=== PATIENT | female | born 1995 ===

== ENCOUNTER 2023-08-05 07:54 | Outpatient (CLI) | payer MEDICAID ==
--- NOTE | 2023-08-05 12:08 | Ultrasound Report ---
PROCEDURE: OB Anatomy Scan INDICATIONS: SUPERVISION OF OUTSIDE/PRIOR DATING DATA: Last menstrual period (LMP): 02/25/2023. LMP-based estimated date of delivery (EARLINE): 12/06/2023. First dating scan (date and location): 08/05/2023. Estimated date of delivery (EARLINE) from first dating scan: 12/14/2023. The below data below was generated using the ultrasound EARLINE of 12/14/2023 TECHNIQUE: Real-time scanning was performed of the fetus, with image documentation and biometric measurements. Endovaginal scanning: Not performed. COMPARISON: None. FINDINGS: General: A single living intrauterine gestation is present. Presentation: Breech Placenta: Placental position is posterior, without previa. Amniotic fluid index: 10.1 cm, within normal limits for gestational age. Largest pocket 3.8 cm. heart rate: 141 beats per minute. Maternal cervical canal: 3.2 cm long; normal length is 2.5 cm or more. Closed. biometrics: Biparietal diameter: 4.9 cm, 21 weeks 0 days Head circumference: 18.8 cm, 21 weeks 1 day Abdominal circumference: 16.6 cm, 21 weeks 5 days Femur length: 3.5 cm, 21 weeks 1 day Estimated gestational age from initial scan: Not applicable Composite gestational age from present scan: 21 weeks 2 days Estimated weight and percentile: 420 grams, 2nd percentile. Measurement variability in biometric dating: +/- 10 days from 12-20 weeks gestation, +/- 2 weeks from 20-30 weeks gestation, +/- 3 weeks at 30 weeks gestation or later. Anatomic survey: Neuro: Ventricles are normal at less than 10 mm. Cisterna magna is normal at 3-11 mm. Cerebellum i s normal in size and morphology. Nuchal skin fold: Normal at less than 6 mm between 14 and 20 weeks gestational age. Face: Nose and lips, facial profile are normal. Spine: No evidence for spina bifida. Heart: 4-chambered heart is present, with normal ventricular outflow tracts. Diaphragm: Diaphragm is intact. Stomach: Left-sided stomach is present. Kidneys: No hydronephrosis. Normal is less than 5 mm in 2nd trimester, less than 7 mm in 3rd trimester. Cord: 3 vessel cord has orthotopic insertion. Bladder: Normal in size. Extremities: All 4 extremities are visualized. Left ovarian cyst measuring 1.6 x 1.3 x 0.9 cm. IMPRESSION: 1. [place] living intrauterine at 21 weeks 2 days based on today's ultrasound. Estimated weight 420 g. Estimated weight is in the 2nd percentile. This raises the possibility of intrauterine growth r estriction. Recommend correlation with clinical dating. 2. Normal placenta and amniotic fluid. 3. Normal and complete anatomic survey. Reviewed by: José Miguel Jay MD on 08/05/2023 12:07 PM PDT Approved by: José Miguel Jay MD on 08/05/2023 12:07 PM PDT Station ID: [id number]
== END 2023-08-05 07:55 | disposition home or self-care (01) ==
LOC: DI 07:54
PROVIDERS: ATTEND Nurse Practitioner Obstetrics & Gynecology
DX: Z34.02 Encounter for supervision of normal first pregnancy, second trimester (principal); Z36.89 Encounter for other specified antenatal screening

== ENCOUNTER 2023-11-15 15:04 | Outpatient (CLI) | payer MEDICAID ==
--- NOTE | 2023-11-15 18:23 | Ultrasound Report ---
PROCEDURE: OB Follow up INDICATIONS: UTERINE SIZE-DATE DISCREPANCY OUTSIDE/PRIOR DATING DATA: Last menstrual period (LMP): 02/25/2023. LMP-based estimated date of delivery (EARLINE): 12/06/2023. First dating scan (date and location): 08/05/2023. Estimated date of delivery (EARLINE) from first dating scan: 12/14/2023. The below data below was generated using the sonographic EARLINE of 12/14/2023 TECHNIQUE: Real-time scanning was performed of the fetus, with image documentation and biometric measurements. Endovaginal scanning: Not performed. COMPARISON: 08/05/2023 FINDINGS: General: A single living intrauterine gestation is present. Presentation: Breech Placenta: Placental position is posterior/fundal, without previa. Amniotic fluid index: 16.5 cm, 65 percentile for gestational age. heart rate: 140 beats per minute. Maternal cervical canal: 3.18 cm long; normal length is 2.5 cm or more. biometrics: Biparietal diameter: 8.74 cm, 35 weeks 2 days, 40.8 percentile Head circumference: 31.7 cm, 35 weeks 4 days, 14.5 percentile Abdominal circumference: 30.7 cm, 34 weeks 4 days, 23.9 percentile Femur length: 6.5 cm, 33 weeks 5 days, 5 percentile Estimated gestational age from initial scan: 35 weeks 6 days Composite gestational age from present scan: 34 weeks 6 days Estimated weight and percentile: 2451 g, 17th percentile Measurement variability in biometric dating: +/- 10 days from 12-20 weeks gestation, +/- 2 weeks from 20-30 weeks gestation, +/- 3 weeks at 30 weeks gestation or more. Other: Not applicable. IMPRESSION: Single living intrauterine at 35 weeks 6 days, EARLINE of 12/14/2023. Estimated weight of 2451 g, 17th percentile. FEDERICO measures 16.5 cm. Reviewed by: Johnie Prater MD on 11/15/2023 6:22 PM PDT Approved by: Johnie Prater MD on 11/15/2023 6:22 PM PDT Station ID: [id number]
== END 2023-11-15 15:05 | disposition home or self-care (01) ==
LOC: DI 15:04
PROVIDERS: ATTEND Nurse Practitioner Obstetrics & Gynecology
DX: O26.843 Uterine size-date discrepancy, third trimester (principal); Z3A.34 34 weeks gestation of pregnancy

== ENCOUNTER 2023-11-26 07:31 | Observation (INO) | payer MEDICAID ==
[~2023-11-26 07:31] MED LIST: MINERAL OIL LIGHT 10 ML TOP SCH; RHO(D) IMMUNE GLOBULIN 300 MCG SYRINGE IM PRN; SODIUM CHLORIDE FLUSH 0.9% 10 ML SYRINGE IVP PRN; fentaNYL 100 MCG/2 ML VIAL IVP PRN
--- NOTE | 2023-11-26 08:06 | HISTORY & PHYSICAL EXAMINATION ---
Admit History - : 3 Parity: 0 - Other Maternal History Other Maternal History: HPI: Patient is a 28-year-old G3, P0 at 39 weeks 0 days gestation presenting today for external cephalic version for breech breech version. She feels good movement, no leaking or bleeding. No contractions. Denies symptoms of preeclampsia. All other symptoms reviewed and were negative except per HPI. PMH Depression PSH No previous surgeries OB History G3, P0 SH Denies tobacco, blood, drugs Family History Noncontributory Allergies No known drug allergies Medications vitamins Fluoxetine Physical exam: General: Alert, oriented, no acute distress Head: Normal cephalic atraumatic Eyes: PERRLA, extraocular motions intact. Respiratory: Normal rate of respiration. No accessory muscle use, normal respiratory effort. Cardiovascular: Regular rate and rhythm Abdomen: Gravid, nontender, nondistended Extremities: Normal range of motion Neuro: Oriented x3. Normal movements Psych: Appropriate mood and affect. Normal judgment and insight FHT: [ ] [place]: [ ] Plan 28-year-old G3, P0 at 39 weeks 0 days gestation here for external cephalic version 1. malpresentation -Discussed the risk, benefits, alternatives of external cephalic version. Discussed risk of heart rate changes being the most common. These are usually temporary and resolve after cessation of procedure. Discussed the risk of placental disruption, bleeding, rupture membranes, urgent section, failure of procedure. Patient did eat breakfast this morning, and why this should not affect things significantly, can increase risk of aspiration if going towards anesthesia. Does not desire spinal at this time. Accepts risk, would like to proceed. O positive blood type, no rhogam indicated. - HPI Vital Signs Temperature 98.1 F 11/26/23 07:56 Heart Rate 89 11/26/23 07:56 Respiratory Rate 16 11/26/23 07:56 Blood Pressure 120/83 H 11/26/23 07:56 Temperature 98.1 F 11/26/23 07:56 Heart Rate 89 11/26/23 07:56 Respiratory Rate 16 11/26/23 07:56 Blood Pressure 120/83 H 11/26/23 07:56 O2 Saturation If not protocol: Oxygen Flow, liters/minute Physical - Abdominal Exam Vital Signs: Temp Pulse Resp BP Pulse Ox O2 Flow Rate 98.1 F 89 16 120/83 H 11/26/23 07:56 11/26/23 07:56 11/26/23 07:56 11/26/23 07:56 Plan for Labor - Plan For Labor I expect patient to be DC'd or transferred within 96 hours.: Yes
[2023-11-26] MEDS: TERBUTALINE 1 MG/ML VIAL SUBQ PRN (09:25)
[2023-11-26] MEDS: ONDANSETRON 4 MG/2 ML VIAL IVP PRN (09:30)
--- NOTE | 2023-11-26 09:53 | PROCEDURE REPORT ---
Hospitalist Procedure Note - Procedure Note Procedure Note: Procedure date: 11/26/2023 Procedure: External cephalic version Indication: Breech presentation, 38 weeks gestation Patient consent: Patient consented to the risks of external cephalic version including the risk of heart rate changes, bleeding, placental abruption, rupture membranes, emergency section, cord prolapse, hemorrhage, stillbirth. Discussed the benefits [place] avoiding a planned section. Discussed we are not successful we will abandon procedure and plan a section. Patient agrees to this and desires to proceed. Anesthesia: Nitrous oxide Complications: None Estimated blood loss: None Postop diagnosis: Successful external cephalic version, cephalic presentation, 38 weeks gestation Procedure summary: Patient is a 20-year-old G3, P0 at 38 weeks gestation who presented for an external cephalic version for breech presentation. Time out was taken. She was taken to the triage room where spinal anesthesia was adequate. Under ultrasound guidance, the fetus was noted to be in breech presentation with head to maternal right and baby in transverse presentation. The patient was given terbutaline for uterine relaxation. Using gentle, steady pressure, the head was rotated counterclockwise as the back was lifted out of the pelvis. Intermittent ultrasound was used to confirm movement. Overall the procedure took approximately 10 minutes which included frequent pauses for maternal discomfort and initiation of nitrous oxide. Ultrasound confirmed cephalic presentation. A belly binder was placed until the effects of the terbutaline wore off. Patient was monitored with a reactive NST after the procedure, but had a prolonged decelerations shortly after the procedure, so she was kept for extended monitoring. She had a reassuring heart tracing afterwards and 8/8 BPP with FEDERICO 14.5cm. She was strongly encouraged to talk about induction of labor and has an appointment with her mine engineering manager tomorrow for a visit and an NST. I appreciate the assistance of SARAH Bro during this procedure, and the assistance during the case was instrumental to the patient's wellbeing.
[2023-11-26 12:10] LABS: BASOPHILS % (AUTO) 0.3 %; EOSINOPHILS # (AUTO) 0.1 10^3/uL (0.0-0.7); EOSINOPHILS % (AUTO) 0.8 %; HCT - HEMATOCRIT 40.8 % (37.0-47.0); HGB - HEMOGLOBIN 13.4 g/dL (12.0-16.0); LYMPHOCYTES # (AUTO) 3.3 10^3/uL (1.5-3.5); LYMPHOCYTES % (AUTO) 26.3 %; MEAN CORPUSCULAR HEMOGLOBIN 31.4 pg (27.0-31.0); MEAN CORPUSCULAR HGB CONC 32.8 g/dL (32.0-36.0); MEAN CORPUSCULAR VOLUME 95.6 fL (81.0-99.0); MEAN PLATELET VOLUME 12.2 fL (7.9-10.8); MONOCYTES # (AUTO) 0.6 10^3/uL (0.0-1.0); MONOCYTES % (AUTO) 4.8 %; NEUTROPHILS # (AUTO) 8.4 10^3/uL (1.5-6.6); NEUTROPHILS % (AUTO) 67.3 %; PLT - PLATELET COUNT 176 10^3/uL (130-450); RED BLOOD COUNT 4.27 10^6/uL (4.20-5.40); RED CELL DISTRIBUTION WIDTH 12.8 % (12.0-15.0); WHITE BLOOD COUNT 12.5 x10^3/uL (4.8-10.8)
--- NOTE | 2023-11-26 14:52 | PHARMACY PROGRESS NOTE ---
- Best Possible Medication History Admit Date and Time: 11/26/23 1204 Processed by: Pharmacy Medications reviewed in ED?: No Medication History completed: Yes Patient Interview: Pt unable to participate (Spoke with nurse outside of room) Secondary Source(s): Physician records, Insurance records As the person ultimately responsible for medication therapy, providers are able to order a medication from an existing home medication list in [facility] via the "Reconcile Routine" prior to Confirmation of that medication by it application support analyst. Such practice is discouraged except when the physician, in their clinical judgment, deems that a medical need exists for a medication without regard to previous use.
[2023-11-26 17:14] VITALS: BP 130/80; O2SAT 97
== END 2023-11-26 16:55 | disposition home or self-care (01) ==
LOC: WFO 07:31 → FBP 07:34 → WFO 12:03 → FBP 12:04
PROVIDERS: ADMIT Obstetrics & Gynecology; ATTEND Obstetrics & Gynecology
DX: O32.1XX0 Maternal care for breech presentation, not applicable or unspecified (principal); O36.8330 Maternal care for abnormalities of the fetal heart rate or rhythm, third trimester, not applicable or unspecified; Z3A.38 38 weeks gestation of pregnancy
CPT/HCPCS: 36415; 59412; 85025; 86850; 86900; 86901; 99215; G0378

== ENCOUNTER 2023-11-27 08:09 | Outpatient (CLI) | payer MEDICAID ==
[2023-11-27 08:23] VITALS: BP 124/90
[2023-11-27] MEDS: ONDANSETRON ODT 4 MG TABLET TL PRN (10:38)
--- NOTE | 2023-11-27 12:56 | PROVIDER PROGRESS NOTE ---
- HPI Chief Complaint: Labor Check Current : Current EDU 12/03/23 Gestation 39 Weeks and 1 Days 3 Para 0 Vital Signs Temperature 36.8 C 11/27/23 08:14 Heart Rate 70 11/27/23 08:14 Respiratory Rate 16 11/27/23 08:14 Blood Pressure 124/90 H 11/27/23 08:14 Temperature 36.8 C 11/27/23 08:14 Heart Rate 70 11/27/23 08:14 Respiratory Rate 16 11/27/23 08:14 Blood Pressure 124/90 H 11/27/23 08:14 O2 Saturation If not protocol: Oxygen Flow, liters/minute - Procedures OB Procedure Performed: NST NST Procedure: NST Procedure Start Date 11/27/23 Start Time 08:15 Stop Time 10:25 Vibroacoustic Stimulation Used Yes Patient States Movement Yes - Plan Plan: Kendrick is a 28yo @ 38.2wks gestation by 12wk U/S who presents to [facility] w/ complaints of contractions. She reports onset of contractions this morning at approximately 0300 and are occurring every 3-7 minutes. She denies vaginal bleeding or leakage of fluid and reports +FM. NST reactive. FHR baseline 140s, moderate variability, + accels, no decels Contractions palpate mild occasionally with soft resting tone SVE 1/70/-2 and vertex. Midposition, soft. Repeat SVE in 2 hours unchanged. FINAL DIAGNOSIS: False labor >37wks gestation Cephalic presentation FHR Category I Reviewed options and recommended augmentation of labor vs patient's preferred expectant management with discharge home. Discussed this in the context of yesterday's ECV with prolonged monitoring following period of intolerance. Reassured by Category I FHR tracing today. Pt strongly desires to be discharged home today. She has emergency contact information and we carefully reviewed discharge instructions and when to return. Will call later today after they have had more time to think about their wishes to return tomorrow for induction of labor. Pt and partner verbalized understanding and agree to above plan. They deny further questions or concerns at this time.
== END 2023-11-27 10:43 | disposition home or self-care (01) ==
LOC: WFO 08:09 → FBP 08:10 → WFO 10:43
PROVIDERS: ATTEND Nurse Practitioner Obstetrics & Gynecology
DX: O47.1 False labor at or after 37 completed weeks of gestation (principal); Z3A.38 38 weeks gestation of pregnancy
CPT/HCPCS: 59025; 99215; Q0162

== ENCOUNTER 2023-11-27 23:50 | Inpatient (IN) | payer MEDICAID ==
[2023-11-28] MEDS ORDERED: LACTATED RINGERS 1,000 ML ONE (00:20)
[2023-11-28] MEDS ORDERED: NIFEdipine 10 MG CAPSULE PO PRN (00:23)
[2023-11-28] MEDS ORDERED: CARBOPROST TROMETHAMINE 250 MCG/ML VIAL IM PRN (00:23)
[2023-11-28] MEDS ORDERED: lidocaine 1% 20 ML MDV ID PRN (00:23)
[2023-11-28] MEDS ORDERED: fentaNYL 100 MCG/2 ML VIAL IVP PRN (00:23)
[2023-11-28] MEDS ORDERED: hydrALAZINE INJ 20 MG/ML VIAL IVP PRN ×2 (00:23)
[2023-11-28] MEDS ORDERED: TERBUTALINE 1 MG/ML VIAL SUBQ PRN (00:23)
[2023-11-28] MEDS ORDERED: LACTATED RINGERS 1,000 ML IV PRN (00:23)
[2023-11-28] MEDS ORDERED: miSOPROStoL 200 MCG TABLET BC PRN (00:23)
[2023-11-28] MEDS ORDERED: SODIUM CHLORIDE FLUSH 0.9% 10 ML SYRINGE IVP PRN (00:23)
[2023-11-28] MEDS ORDERED: OXYTOCIN 10 UNIT/ML VIAL IM PRN (00:23)
[2023-11-28] MEDS ORDERED: METHYLERGONOVINE 0.2 MG/ML VIAL IM PRN (00:23)
[2023-11-28] MEDS ORDERED: LABETALOL 20 MG/4 ML SYRINGE IVP PRN ×3 (00:23)
[2023-11-28] MEDS ORDERED: TRANEXAMIC ACID IN NACL 1,000 MG/100 ML BAG IV PRN (00:23)
[2023-11-28] MEDS ORDERED: miSOPROStoL 200 MCG TABLET PR PRN (00:23)
[2023-11-28 00:56] LABS: BASOPHILS % (AUTO) 0.1 %; HCT - HEMATOCRIT 44.8 % (37.0-47.0); LYMPHOCYTES % (AUTO) 11.4 %; MEAN CORPUSCULAR HEMOGLOBIN 31.4 pg (27.0-31.0); MEAN CORPUSCULAR HGB CONC 33.5 g/dL (32.0-36.0); MEAN CORPUSCULAR VOLUME 93.9 fL (81.0-99.0); MEAN PLATELET VOLUME 11.5 fL (7.9-10.8); MONOCYTES % (AUTO) 3.5 %; NEUTROPHILS % (AUTO) 84.2 %; PLT - PLATELET COUNT 219 10^3/uL (130-450); RED BLOOD COUNT 4.77 10^6/uL (4.20-5.40); RED CELL DISTRIBUTION WIDTH 12.5 % (12.0-15.0)
[2023-11-28] MEDS ORDERED: SODIUM CHLORIDE FLUSH 0.9% 10 ML SYRINGE IVP SCH (01:00)
[2023-11-28] MEDS ORDERED: AMPICILLIN 2 GM VIAL IV ONE (01:00)
[2023-11-28 01:04] LABS: ABNORMAL LYMPHS % (MANUAL) 0 %; BAND NEUTROPHILS % (MANUAL) 0 %; SLIDE REVIEW? Indicated
[2023-11-28] MEDS: AMPICILLIN 2 GM in SODIUM CHLORIDE 0.9% MINIBAG 100 ML IV ONE (01:19)
[2023-11-28 01:29] LABS: ALBUMIN 3.7 g/dL (3.2-5.5); ALBUMIN/GLOBULIN RATIO 1.1 (1.0-2.2); BILIRUBIN,TOTAL 0.5 mg/dL (0.2-1.0); CALCIUM 9.3 mg/dL (8.5-10.3); CREATININE 0.4 mg/dL (0.6-1.3); POTASSIUM 3.8 mmol/L (3.5-4.5); TOTAL PROTEIN 7.1 g/dL (6.4-8.9)
[2023-11-28 01:36] LABS: DIFFERENTIAL COMMENT MANUAL DIFFERENTIAL; LYMPHOCYTES # (MANUAL) 1.7 10^3/uL (1.5-3.5); LYMPHOCYTES % (MANUAL) 8 %; MONOCYTES # (MANUAL) 0.6 10^3/uL (0.0-1.0); NEUTROPHILS # (MANUAL) 18.7 10^3/uL (1.5-6.6); PLATELET ESTIMATE, MANUAL NORMAL (130-450,000) (NORMAL); PLATELET MORPHOLOGY NORMAL APPEARANCE (NORMAL); RBC MORPHOLOGY (MULTIPLE) NORMAL APPEARANCE (NORMAL); WBC MORPHOLOGY (MULTIPLE) NORMAL APPEARANCE (NORMAL)
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
[2023-11-28] MEDS: LACTATED RINGERS 1,000 ML IV SCH (03:15)
[2023-11-28] MEDS ORDERED: ROPIVACAINE 0.2% 200 MG/100 ML BAG EP ONE (03:50)
[2023-11-28] MEDS ORDERED: LIDOCAINE 2%-EPI 1:100000 20 ML MDV ONE (03:50)
--- NOTE | 2023-11-28 05:00 | ANESTHESIA ---
Pre-Anesthesia VS, & Labs - Diagnosis , 38+3 weeks, s/p ECV on 11/25, in labor, 6cm. plt 219, desires epidural - Procedure placement of labor epidural Vital Signs: Temp Pulse Resp BP Pulse Ox O2 Flow Rate 36.8 C 11/28/23 01:10 Height: 5 ft 5 in Weight (kg): 86.183 kg Body Mass Index: 31.6 BMI Classification: Obese - NPO Last Fluid Intake: currently taking sips - Is Patient ?: Yes - Lab Results Current Lab Results: Laboratory Tests 11/28/23 00:30: Sodium 133 L, Potassium 3.8, Chloride 102, Carbon Dioxide 18 L, Anion Gap 13.0, BUN 9, Creatinine 0.4 L, Estimated GFR (MDRD) 190, Glucose 97, Calcium 9.3, Total Bilirubin 0.5, AST 15, ALT 13, Alkaline Phosphatase 133 H, Total Protein 7.1, Albumin 3.7, Globulin 3.4, Albumin/Globulin Ratio 1.1 11/28/23 00:30: WBC 21.0 H, RBC 4.77, Hgb 15.0, Hct 44.8, MCV 93.9, MCH 31.4 H, MCHC 33.5, RDW 12.5, Plt Count 219, MPV 11.5 H, Neut # (Auto) Not Reportable, Lymph # (Auto) Not Reportable, [place] # (Auto) Not Reportable, Eos # (Auto) Not Reportable, Baso # (Auto) Not Reportable, Absolute Nucleated RBC Not Reportable, Total Counted 100, Band Neuts % (Manual) 0, Abnorm Lymph % (Manual) 0, Nucleated RBC % Not Reportable, Neutrophils # (Manual) 18.7 H, Lymphocytes # (Manual) 1.7, Monocytes # (Manual) 0.6, Eosinophils # (Manual) 0.0, Basophils # (Manual) 0.0, Differential Comment MANUAL DIFFERENTIAL, Manual Slide Review Indicated, WBC Morphology NORMAL APPEARANCE, Platelet Estimate NORMAL (130-450,000), Platelet Morphology NORMAL APPEARANCE, RBC Morph Micro Appear NORMAL APPEARANCE 11/28/23 00:30: Blood Type O POSITIVE, Antibody Screen NEGATIVE 11/28/23 00:30: TSH 8.30 H Lab results reviewed: Yes Fish Bones: 11/28/23 00:30 11/28/23 00:30 Home Medications and Allergies Active Medications Carboprost Tromethamine (Carboprost Tromethamine 250 Mcg/Ml Vial) 250 mcg IM .ONCE PRN PRN Reason: Hemorrhage Fentanyl (Fentanyl 100 Mcg/2 Ml Vial) 50 mcg IVP Q1H PRN PRN Reason: Severe Pain (score 7-10) Hydralazine HCl (Hydralazine Inj 20 Mg/Ml Vial) 5 - 10 mg IVP Q20M PRN; Protocol PRN Reason: SBP> or= 160 OR DBP> or= 110 Hydralazine HCl (Hydralazine Inj 20 Mg/Ml Vial) 10 mg IVP .ONCE PRN; Protocol PRN Reason: SBP> or= 160 OR DBP> or= 110 Lactated Ringer's (Lr) 500 mls @ 999 mls/hr IV PRN PRN PRN Reason: distress Oxytocin/Sodium Chloride (Pitocin/Sodium Chloride) 500 mls @ 999 mls/hr IV PRN PRN; Protocol PRN Reason: POST- HEMORR PREVENTION Tranexamic Acid (Tranexamic 1,000 Mg/100ml-Nacl) 1,000 mg in 100 mls @ 600 mls/hr IV Q30M PRN PRN Reason: EBL >1200mL and within 3hr Ampicillin Sodium 1 gm/ Sodium (Chloride) 100 mls @ 200 mls/hr IV Q4H NAI Lactated Ringer's (Lr) 1,000 mls @ 125 mls/hr IV .Q8H [facility] Last Admin: 11/28/23 03:15 Dose: 125 mls/hr Labetalol HCl (Labetalol 20 Mg/4 Ml Syringe) 20 - 80 mg IVP Q10M PRN; Protocol PRN Reason: SBP> or= 160 OR DBP> or= 110 Labetalol HCl (Labetalol 20 Mg/4 Ml Syringe) 20 mg IVP .ONCE PRN; Protocol PRN Reason: SBP> or= 160 OR DBP> or= 110 Labetalol HCl (Labetalol 20 Mg/4 Ml Syringe) 20 - 40 mg IVP Q10M PRN; Protocol PRN Reason: SBP> or= 160 OR DBP> or= 110 Lidocaine HCl (Lidocaine 1% 20 Ml Mdv) 20 ml ID .ONCE PRN PRN Reason: PERINEAL REPAIR Stop: 12/01/23 00:23 Methylergonovine Maleate (Methylergonovine 0.2 Mg/Ml Vial) 0.2 mg IM .ONCE PRN PRN Reason: Hemorrhage Misoprostol (Misoprostol 200 Mcg Tablet) 600 mcg BC .ONCE PRN PRN Reason: Hemorrhage Misoprostol (Misoprostol 200 Mcg Tablet) 800 mcg SD .ONCE PRN PRN Reason: Hemorrhage Nifedipine (Nifedipine 10 Mg Capsule) 10 - 20 mg PO Q20M PRN; Protocol PRN Reason: SBP> or= 160 OR DBP> or= 110 Oxytocin (Oxytocin 10 Unit/Ml Vial) 10 unit IM .ONCE PRN PRN Reason: Step One if no IV access. Sodium Chloride (Sodium Chloride Flush 0.9% 10 Ml Syringe) 10 ml IVP PRN PRN PRN Reason: NEEDED PER PROVIDER ORDERS Sodium Chloride (Sodium Chloride Flush 0.9% 10 Ml Syringe) 10 ml IVP Q8H NAI Terbutaline Sulfate (Terbutaline 1 Mg/Ml Vial) 0.25 mg SUBQ .ONCE PRN PRN Reason: Tachystole Fluoxetine HCl [Prozac] 40 mg PO DAILY 11/26/23 168/Iron/Folic/Omega3 [One-A-Day -1 Softgel] 1 each PO DAILY 11/26/23 Allergies/Adverse Reactions: Allergies Allergy/AdvReac Type Severity Reaction Status Date / Time No Known Drug Allergies Allergy Verified 11/26/23 09:25 Anes History & Medical History - Anesthetic History Anesthesia Complications: reports: No previous complications Family history of Anesthesia Complications: Denies - Medical History Cardiovascular: reports: None Pulmonary: reports: None Gastrointestinal: reports: GERD Urinary: reports: None Neuro: reports: None Musculoskeletal: reports: None, Other (back pain with ) Endocrine/Autoimmune: reports: None Blood Disorders: reports: None Smoking Status: Former smoker Psychosocial: reports: No issues indicated - Obstetrical History : 3 Parity: 0 Complications: reports: Treated for GBS/UTI, Other (Limited visits) Exam General: Alert, Oriented x3, Cooperative Dental: WNL Mouth Openin Fingerbreadth Neck Mobility: Normal Mallampati classification: II Thyromental Distance: 4-6 cm Respiratory: Lungs clear Cardiovascular: Regular rate Plan Anesthesia Type: Epidural Consent for Procedure(s) Verified and Reviewed: Yes Code Status: Attempt Resuscitation ASA classification: 1-Healthy patient Is this case an emergency?: No
[2023-11-28] MEDS ORDERED: NALOXONE 0.4 MG/ML VIAL IVP PRN (05:01)
[2023-11-28] MEDS ORDERED: ONDANSETRON 4 MG/2 ML VIAL IVP PRN (05:01)
[2023-11-28] MEDS ORDERED: ROPIVACAINE 0.2% 200 MG/100 ML BAG EP PRN (05:01)
[2023-11-28] MEDS ORDERED: diphenhydrAMINE INJ 50 MG/ML VIAL IVP PRN (05:01)
[2023-11-28] MEDS ORDERED: METOCLOPRAMIDE 10 MG/2 ML VIAL IVP PRN (05:01)
[2023-11-28] MEDS ORDERED: ePHEDrine 50 MG/ML VIAL IVP PRN (05:01)
[2023-11-28] MEDS ORDERED: NALBUPHINE 10 MG/ML AMP IVP PRN (05:01)
--- NOTE | 2023-11-28 05:06 | ANESTHESIA PROCEDURE NOTE ---
Anesthesia Epidural Template - Patient Report Patient Reports: positive: Pain controlled - Other Comments Other Comments: DPE Epidural placed easily, in the usual fashion, neg test dose, comfortable after bolus, pain 9/10 to 2/10, relief equal bilat., strong legs, level T11 to cold. 0.2% Ropivicaine 10ml q 50 min, pcea 4ml q 10, 26ml hourly limit.
[2023-11-28] MEDS: AMPICILLIN 1 GM in SODIUM CHLORIDE 0.9% MINIBAG 100 ML IV SCH (05:28)
--- NOTE | 2023-11-28 10:34 | PROVIDER PROGRESS NOTE ---
Labor Progress Note - Uterine Monitoring Uterine Monitoring Mode: positive: External toco Contraction Frequency (min/apart): 2-6 Contraction Intensity: positive: Strong Uterine Resting Tone: positive: Soft - Monitoring Monitor Mode: positive: External ultrasound Heart Rate Baseline: 130 Heart Rate Variability: positive: Moderate (6-25 bmp) Accelerations: positive: Present, 15x15 Decelerations: positive: None Strip Review: positive: Category I - Vaginal Exam Dilation (in cm): 9 Effacement (%): 100 Station: -1 Cervical Position: Anterior - Labor Progress Note Labor Progress Note/Additional Text: S: Pt feeling increased pressure with contractions. O: FHR baseline 130s, moderate variability, + accels, no decels Contractions palpate strong every 3-6 minutes with soft resting tone SVE 9/100/-1, vertex AROM moderate amount of meconium amniotic fluid A: 28yo @ 38.3wks gestation by 12wk U/S FHR Category I Light meconium GBS positive P: Continue expectant management. [employer] notified of possible SGA infant and meconium amniotic fluid. Maintain epidural for pain management. Continuous monitoring. Anticipate .
--- NOTE | 2023-11-28 11:37 | PHARMACY PROGRESS NOTE ---
- Best Possible Medication History Admit Date and Time: 11/28/23 0023 Processed by: Pharmacy Medication History completed: Yes Patient Interview: Pt unable to participate Secondary Source(s): Caregiver (PER RX INSURANCE RECORDS, EHR, AND FBP RN MITESH RIVERO), Physician records, Insurance records As the person ultimately responsible for medication therapy, providers are able to order a medication from an existing home medication list in [facility] via the "Reconcile Routine" prior to Confirmation of that medication by desktop support technician. Such practice is discouraged except when the physician, in their clinical judgment, deems that a medical need exists for a medication without regard to previous use.
[2023-11-28] MEDS: OXYTOCIN/SODIUM CHLORIDE 500 ML IV PRN (11:50)
[2023-11-28] MEDS ORDERED: HYDROCORTISONE 1% CREAM 28 GM TUBE PR PRN (12:07)
--- NOTE | 2023-11-28 12:31 | DELIVERY NOTE ---
Delivery Note - Labor Labor: positive: Spontaneous - Delivery Method Delivery Method: positive: Spontaneous vaginal delivery - Presentation Presentation: positive: Vertex, LIZZY - left occiput anterior - Nuchal Cord Nuchal Cord: positive: None - Amniotic Fluid Description Amniotic Fluid Description: positive: Light meconium - Episiotomy Type Episiotomy Type: positive: None - Laceration Laceration: positive: None - Delivery Outcome Delivery Outcome: positive: Livebirth - : positive: Placed in direct skin contact with mother, Bulb syringe, Stimulated, [place] used [place] sex: positive: Female - Cord Cord: positive: 3 vessels - Placenta Placenta: positive: Intact, Spontaneous - Estimated Blood Loss Estimated Blood Loss (in cc): 150 - Post Delivery Events Post Delivery Events: positive: No post delivery events - Delivery Comments (Free Text/Narrative) Delivery Comments (Free Text/Narrative): Labor: This 28yo @ 38.3wks gestation by 12wk U/S presented initially on 11/27/2023 with c/o contractions. Upon arrival her cervix was 1/70/-2 and vertex with intct membranes. She ambulated x 2 hours and repeat SVE was unchanged. She was released home with precautions and returned on 11/28/2023 at 0000 with increased frequency and intensity of contractions. Upon arrival cervix was 3/80/-2 and vertex with intact membranes. She was admitted for expectant management. She was noted to be GBS positive and antibiotics were initiated for prophylaxis per protocol. FHR pattern demonstrated Category I pattern throughout labor. Epidural placed per maternal request. AROM occurred at 1017 on 10/17/2023 and was noted to be a moderate amount of light meconium stained amniotic fluid. Aviation Project Manager notified. Pt progressed to c/c/+1 at 1102 with onset of pushing at 1111. : Normal SVB of viable female on 11/28/2023 @ 1141. No nuchal cord. There was noted to be a tight body cord following delivery. The was placed on maternal abdomen, stimulated, dried, and placed skin to skin. 's were 7/9 at 1 and 5 minutes respectively. Pitocin administered via IV for hemostasis. The umbilical cord was allowed to stop pulsating at which time it was doubly clamped by CNM and cut by FOB. 3VC. Cord blood was obtained. Fundal massage and gentle cord traction applied for active management of the third stage. Placenta delivered spontaneously and intact at 1150. QBL 150mL. Fourth stage: Uterine fundus firm and there is no excessive bleeding. The perineum, vagina, and cervix were inspected and found to be intact. initiated. Family bonding well. Both mother and baby were left in stable condition.
[2023-11-28] MEDS: ACETAMINOPHEN 500 MG TABLET PO SCH (19:31)
[2023-11-28] MEDS: FLUoxetine 10 MG CAPSULE PO SCH (21:35)
[2023-11-28] MEDS ORDERED: FLUoxetine 10 MG CAPSULE PO ONE (21:41)
[2023-11-29] MEDS: WITCH HAZEL/GLYCERIN 1 PAD TOP PRN (01:22)
[2023-11-29] MEDS: IBUPROFEN 800 MG TABLET PO SCH (14:35)
--- NOTE | 2023-11-29 20:09 | PROVIDER PROGRESS NOTE ---
Subjective - Prog Note Date Prog Note Date: 11/29/23 Prog Note Time: 13:00 - Subjective Pt reports feeling: Improved Objective - Vital Signs/Intake & Output Reviewed Vital Signs: Yes Vital Signs: Vital Signs x48h Temp Pulse Resp BP Pulse Ox 11/29/23 17:28 36.7 C 80 20 122/71 99 Intake & Output: Intake & Output 11/26/23 11/27/23 11/28/23 11/29/23 23:59 23:59 23:59 23:59 Intake Total 727.083 700 Output Total 1100 Balance -372.917 700 - Objective General Appearance: positive: No acute distress Eyes Bilateral: positive: Normal inspection Respiratory: positive: No respiratory distress Cardiovascular: positive: Other (no edema) Abdomen: positive: Non-tender, Other (FF below U) Back: positive: Nml inspection Skin: positive: Color nml Extremities: positive: Non-tender Neurologic/Psychiatric: positive: Oriented x3 - Lab Results Fish Bones: 11/28/23 00:30 11/28/23 00:30 - Other Results/Comments Other Results/Comments: Subjective: Patient reports she is doing well. Comfortable WITHOUT narcotic pain managment Lochia appropriate. Denies heavy bleeding. Ambulating. Pelvic and abdominal pain well-controlled. Some perineal discomfort. Relief with ice and tucks pads Tolerating oral intake. Diet: Regular. Voiding without difficulty. Passing flatus. Endorses BM Patient is bonding with baby in room Bottle feeding and breast feeding infant. RNs offering support Denies feeling lightheaded, dizzy or excessively fatigued. Objective General: Alert, oriented, no apparent distress. Cardiovascular: No edema. Regular rate. Regular rhythm. Lungs: No increased work of breathing. Abdomen: Uterus firm. Below umbilicus. No guarding or rebound tenderness. Extremities: No pain on palpation. Distal pulses intact. ABX Reporting Has patient been on IV antibiotics over the past 48 hours?: Yes Assessment/Plan - Problem List (1) Normal vaginal delivery Impression: day 1. 28yo s/p on 11/29/23, PPD#1 doing well - Routine - Anticipate discharge tomorrow Rubella immune. (2) Exclusive by mother Impression: Continued support by provider and nursing team.
[2023-11-29] MEDS: DOCUSATE SODIUM 100 MG CAPSULE PO SCH (20:37)
[2023-11-30 09:32] VITALS: BP 119/69; O2SAT 98
--- NOTE | 2023-11-30 10:33 | Discharge Plan ---
Discharge Plan Problem Reviewed?: Yes Disposition: Home, Self Care Condition: Good Diet: Regular Activity Restrictions: No Restrictions Shower Restrictions: No Driving Restrictions: No Weight Bearing: Full Weight Instruction Topics: Vaginal After, Self Care, Nutrition , Breastfeed Holds, Breastmilk Expressing No Smoking: If you smoke, Please STOP! Call for help. Follow-up with: Deborah Curry CNM, SARAH [Provider Admit Priv/Credential] - 1 Week
--- NOTE | 2023-11-30 10:56 | DISCHARGE SUMMARY ---
Discharge Summary Condition at Discharge: Good Discharge Disposition: 01 Home, Self Care - HOSPITAL COURSE Hospital Course: Date of Admission: 11/28/2023 Date of Discharge: Diagnosis on Admission: 1. 28yo @ 38.3wks gestation by 12.2wk U/S 2. Early labor 3. FHR Category I 4. GBS positive Diagnosis on Discharge: 1. 28yo PPD#2 s/p TSVD viable female infant 2. 3. Normal recover Brief History: She is a patient of [facility] who presented on 11/28/2023 with c/o contractions. Upon arrival her cervix was 3/80/-2 and vertex with intact membranes. She was treated for GBS positive status per protocol adequately. Epidural was placed per maternal request. AROM occurred for augmentation of labor and was noted to be a moderate amount of lightly meconium stained amniotic fluid. She progressed to spontaneously deliver a viable female infant on 11/28/2023 @ 1141 over intact perineum. Apgars were 7/9 at 1 and 5 minutes respectively. QBL 150mL. She has been doing well in her course. She is ambulating and tolerating a regular diet. She is urinating without difficulty and her lochia is normal. Her pain is well controlled with oral medications. She is bonding well with eher baby. She is with some difficulty getting baby to latch but she has been pumping frequently and supplementing with formula. She has worked closely with nursing staff to coordinate SNS feeding system and she feels confident about her ability to adequately care for and feed her baby. She will be discharged home today on day #2 with instructions to continue taking her vitamin while and continue taking ibuprofen and tylenol over the counter as needed for pain management. She intends to follow up with myself at [facility] in 1 week for routine visit or sooner if needed. She has been given precautions to call if she has any worsening fevers, chills, abdominal pain, increased vaginal bleeding or foul smelling vaginal lochia. Physical exam: Normocephalic, atraumatic. Heart RRR w/o M/G/R, lungs CTAB, abdomen soft and nontender with fundus firm at U-1, perineum intact, light lochia rubra. Bilateral LE's no edema. Mood is good. - ALLERGIES Allergies/Adverse Reactions: Allergies Allergy/AdvReac Type Severity Reaction Status Date / Time No Known Drug Allergies Allergy Verified 11/26/23 09:25 - MEDICATIONS Home Medications: Ambulatory Orders Medication Instructions Recorded Confirmed Fluoxetine HCl [Prozac] 40 mg PO DAILY 11/26/23 11/28/23 168/Iron/Folic/Omega3 1 each PO DAILY 11/26/23 11/28/23 [One-A-Day -1 Softgel] - LABS Result Diagrams: 11/28/23 00:30 11/28/23 00:30
--- NOTE | 2023-11-30 18:48 | Labor Flowsheet ---
Labor Flowsheet Datetime Report Generated by CPN: 11/30/2023 18:48 Datetime: 11/30/2023 09:19 VITAL SIGNS NBP Sys/Faby/Mean (mmHg): 119 : 69 : 82 Pulse: 83 Datetime: 11/28/2023 14:00 Stage of : Recovery Datetime: 11/28/2023 12:00 PAIN Pain Scale: 0 Pain Presence: None/Denies Pain Type: N/A Datetime: 11/28/2023 11:36 ASSESSMENT A Monitor Mode: Telemetry FHR Baseline Rate : 125 Variability: Moderate 6-25 bpm Accelerations: 15X15 Decelerations: Variable Category: Category II COMMUNICATION Communication: RN at Bedside; RN Reviewed Strip; Provider at Bedside Datetime: 11/28/2023 11:33 SpO2 (%): 100 LaborFlag: Labor Datetime: 11/28/2023 11:31 Frequency (min): 3-6 Pattern: Normal: <= 5 Contractions in 10 Minutes Datetime: 11/28/2023 11:11 VAGINAL EXAM Dilatation (cm): 10.0 Effacement (%): 100 Station: 1 Exam by: Bola Curry CNM Vaginal Exam Comments: Start of maternal pushing efforts I/O Interventions: Pearson Discontinued Patient Care Comments: 1100 mls of clear yellow urine noted in pearson bag. Datetime: 11/28/2023 11:00 Duration (sec): 80-100 Datetime: 11/28/2023 10:17 Membrane Status: Ruptured Membranes Rupture Method: Artificial Amniotic Fluid Color: Light Meconium Amniotic Fluid Amount: Moderate Amniotic Fluid Odor: None Vaginal Bleeding: Normal Show Cervix, Consistency: Soft Cervix, Position: Anterior Datetime: 11/28/2023 08:48 Hygiene: Miriam Care; Underpad Changed Datetime: 11/28/2023 07:30 UTERINE ACTIVITY Monitor Mode: External Quality: Moderate Resting Tone (Palpate): Relaxed Datetime: 11/28/2023 07:08 Communication Comments: Report received from Mauricio Cruz, RN. Patient care assumed. Datetime: 11/28/2023 06:34 FHR Baseline Changes: No Baseline Change Anesthesia Level Check: T8- Ribs Anesthesia Comments: S Juarez here, epidural changed to [employer]NER only for c/o too numb Pain Management: Epidural Datetime: 11/28/2023 05:59 Respirations: 16 Datetime: 11/28/2023 05:45 ASSESSMENT B Monitor Mode: External US FHR Baseline Rate : 120 Variability: Moderate 6-25 bpm Accelerations: 15X15 Decelerations: Variable Datetime: 11/28/2023 05:42 MEDICATIONS Antibiotics: Ampicillin IV 1 Gm Datetime: 11/28/2023 05:39 Patient Position/Activity: Left Lateral Datetime: 11/28/2023 05:26 Strip Reviewed by: [email or web address] Datetime: 11/28/2023 05:14 Comments: late x1 while on back for pearson Datetime: 11/28/2023 04:48 Monitor Interventions for UA: [place] Adjusted Datetime: 11/28/2023 04:45 Temperature (C): 36.2 Datetime: 11/28/2023 04:33 Epidural Procedure Other: Pump Started Datetime: 11/28/2023 04:20 Epidural Procedure: Loading Dose Datetime: 11/28/2023 04:02 PROCEDURE TIME OUT Procedure Verify: Correct Patient Identity; Correct Side and Site are Marked; Accurate Procedure Co nsent Form; Agreement on Procedure to be Done; Correct Patient Position; Relevant Images and Results are Properly Labeled and Displayed; Addressed Need to Administer Antibiotics or Fluids for Irrigation ; Safety Precautions Based on Patient History or Medication Use Epidural Positioning: Sitting Datetime: 11/28/2023 03:50 ANESTHESIA Anesthesia Plans: Epidural Datetime: 11/28/2023 03:19 Pain Location: Abdomen Pain Assessment Comments: anesthesia notified and to come in Datetime: 11/28/2023 03:18 PATIENT CARE IV/Blood Work: New IV Bag Hung Datetime: 11/28/2023 03:10 Notification Reason: Labor Status Datetime: 11/28/2023 02:56 Membranes Ruptured Date/Time: 11/28/2023 10:17 Datetime: 11/28/2023 02:09 Contraction Comments: remains in tub Datetime: 11/28/2023 01:53 Provider Reviewed Strip: Yes Datetime: 11/28/2023 01:00 Nausea/Vomiting: Denies Datetime: 11/28/2023 00:49 MATERNAL ASSESSMENT Level of Consciousness: Alert Headache: Denies RUQ Epigastric Pain: Denies Provider Notified (Name): A Patricio Datetime: 11/28/2023 00:31 Pain Relief Measures: Comfort Measures Pain Coping: Breathing Through Contractions Comfort Measures: Breathing/Relaxation; Family Support TEACHING Instructional Method: Verbal; Patient Instructed; Family/Support Person Instructed Plan of Care: Plan of Care Discussed Unit Routine: [place] to Room; Call Adam; Bed; Monitoring; Medications Datetime: 11/28/2023 00:21 Monitor Interventions for FHR: Ultrasound Adjusted
== END 2023-11-30 18:30 | disposition home or self-care (01) | DRG 807 ==
LOC: WFO 23:50 → FBP 23:52 → WFO 11-28 00:22 → FBP 11-28 00:23
PROVIDERS: ADMIT Nurse Practitioner Obstetrics & Gynecology; ATTEND Nurse Practitioner Obstetrics & Gynecology
PROC: 10E0XZZ Delivery of Products of Conception, External Approach (ICD-10-PCS; principal; 2023-11-28)
PROC: 10907ZC Drainage of Amniotic Fluid, Therapeutic from Products of Conception, Via Natural or Artificial Opening (ICD-10-PCS; 2023-11-28)
DX: O99.824 Streptococcus B carrier state complicating childbirth (principal); Z37.0 Single live birth; Z3A.38 38 weeks gestation of pregnancy; O77.0 Labor and delivery complicated by meconium in amniotic fluid; Z87.891 Personal history of nicotine dependence; O69.2XX0 Labor and delivery complicated by other cord entanglement, with compression, not applicable or unspecified
CPT/HCPCS: 36415; 59025; 59409; 80053; 84443; 85025; 86850; 86900; 86901; 99215; 99406; A9270; J7120